=== PATIENT | female | born 1975 | race African-American/Black ===

== ENCOUNTER 2017-05-16 23:35 | Emergency (ER) | payer MEDICAID ==
[~2017-05-16] VITALS: Ht 172.7 cm; Wt 69.0 kg
[2017-05-17] MEDS ORDERED: ONDANSETRON 4MG ODT PO ONE (02:15)
[2017-05-17] MEDS ORDERED: KETOROLAC 30MG/ML VIAL IM ONE (02:15)
[2017-05-17] MEDS ORDERED: KETOROLAC 30MG/ML VIAL IV ONE (02:15)
[2017-05-17] MEDS ORDERED: LOSARTAN POTASSIUM 50 MG TABLET PO SCH (02:30)
[2017-05-17 03:52] VITALS: BP 141/95
== END 2017-05-17 04:30 | disposition home or self-care (01) ==
LOC: ER 23:35
DX: M54.2 Cervicalgia (principal); M25.512 Pain in left shoulder; M54.9 Dorsalgia, unspecified; V49.49XA Driver injured in collision with other motor vehicles in traffic accident, initial encounter; Y93.89 Activity, other specified; Y92.410 Unspecified street and highway as the place of occurrence of the external cause; Y99.9 Unspecified external cause status; I10 Essential (primary) hypertension; Z98.51 Tubal ligation status
CPT/HCPCS: 72040; 73030; 96372; 99284; J1885; Q0162

== ENCOUNTER 2017-07-23 11:59 | Emergency (ER) | payer MEDICAID ==
[~2017-07-23] VITALS: Ht 172.7 cm; Wt 73.0 kg
[2017-07-23 12:36] VITALS: BP 142/92
== END 2017-07-23 18:58 | disposition left against medical advice (07) ==
LOC: ER 14:27
DX: H57.8 Other specified disorders of eye and adnexa (principal); Z53.21 Procedure and treatment not carried out due to patient leaving prior to being seen by health care provider

== ENCOUNTER 2018-03-09 21:41 | Emergency (ER) | payer MEDICAID ==
[~2018-03-09] VITALS: Ht 172.7 cm; Wt 82.0 kg
[2018-03-09] MEDS ORDERED: CLONIDINE 0.1MG TABLET PO ONE (23:00)
[2018-03-09 23:49] LABS: BASOPHILS % 0.9 % (0.0-2.0); CHLORIDE 105 mEq/L (98-107); EOSINOPHILS % 4.1 % (0.0-5.0); HEMATOCRIT. 35.7 % (36.0-48.0); HEMOGLOBIN. 11.8 g/dL (12.0-16.0); LYMPHOCYTES % 37.1 % (20.0-50.0); MEAN CORPUSCULAR HEMOGLOBIN 26.6 pg (28.0-32.0); MEAN CORPUSCULAR VOLUME 80.9 fL (81.0-99.0); MEAN PLATELET VOLUME 7.7 fl (7.4-10.4); MONOCYTES % 5.7 % (2.0-8.0); NEUTROPHILS % 52.2 % (40.0-76.0); PLATELET 281 x1000/uL (130-400); RED BLOOD CELL COUNT 4.42 mill/uL (4.2-5.4); RED CELL DISTRIBUTION WIDTH 13.4 % (11.6-14.6)
[2018-03-10] MEDS ORDERED: CYCLOBENZAPRINE 10MG TABLET PO ONE (00:15)
[2018-03-10] MEDS ORDERED: IBUPROFEN 600MG TABLET PO ONE (00:15)
[2018-03-10 00:37] VITALS: BP 157/99
== END 2018-03-10 00:59 | disposition home or self-care (01) ==
LOC: ER 21:41
DX: I16.0 Hypertensive urgency (principal); I10 Essential (primary) hypertension; R51 Headache
CPT/HCPCS: 36415; 80053; 81025; 82962; 85025; 93005; 99285

== ENCOUNTER 2019-08-28 08:21 | Emergency (ER) | payer MEDICAID ==
[~2019-08-28] VITALS: Ht 172.7 cm; Wt 81.0 kg
[2019-08-28] MEDS ORDERED: HYDROCODONE/ACETAMINOPHEN 5/325MG TABLET PO ONE (10:00)
[2019-08-28 10:15] LABS: EOSINOPHILS % 3.7 % (0.0-5.0); HEMOGLOBIN. 12.2 g/dL (12.0-16.0); LYMPHOCYTES % 36.7 % (20.0-50.0); MEAN CORPUSCULAR HEMOGLOBIN 26.6 pg (28.0-32.0); MEAN CORPUSCULAR VOLUME 80.4 fL (81.0-99.0); MEAN PLATELET VOLUME 7.3 fl (7.4-10.4); MONOCYTES % 5.9 % (2.0-8.0); NEUTROPHILS % 52.7 % (40.0-76.0); PLATELET 326 x1000/uL (130-400); RED CELL DISTRIBUTION WIDTH 13.5 % (11.6-14.6)
[2019-08-28 10:20] LABS: CHLORIDE 104 mEq/L (98-107)
[2019-08-28 10:31] LABS: B-HCG QUANTITATIVE < 1 mIU/mL (<3)
[2019-08-28 11:17] VITALS: BP 125/85
== END 2019-08-28 11:16 | disposition home or self-care (01) ==
LOC: ER 08:21
DX: D25.9 Leiomyoma of uterus, unspecified (principal); R10.2 Pelvic and perineal pain; I10 Essential (primary) hypertension
CPT/HCPCS: 36415; 80053; 84702; 85025; 86850; 86900; 99283